=== PATIENT | male | born 1945 | race Caucasian/White ===

== ENCOUNTER 2017-05-17 19:32 | Inpatient (IN) | payer BC ==
[~2017-05-17] VITALS: Ht 177.8 cm; Wt 80.7 kg
--- NOTE | 2017-05-17 19:47 | PHYS DOC ---
Adult General Chief Complaint Chief Complaint: BRADYCARDIA HPI HPI Patient is a 72 year old male who presents with bradycardia. He states he was at dinner tonight when he felt a pain in his left lower abdominal wall and then felt nauseated and became diaphoretic and very weak. He denies any chest pain, shortness of breath, nausea or vomiting. He does have a past medical of prostate issues. He states he does have a cardiology appointment next week and was never had a stress test. Review of Systems Review of Systems Constitutional: Denies fever or chills [] Eyes: Denies change in visual acuity, redness, or eye pain [] HENT: Denies nasal congestion or sore throat [] Respiratory: Denies cough or shortness of breath [] Cardiovascular: No additional information not addressed in HPI [] GI: Denies abdominal pain, nausea, vomiting, bloody stools or diarrhea [] : Denies dysuria or hematuria [] Musculoskeletal: Denies back pain or joint pain [] Integument: Denies rash or skin lesions [] Neurologic: Denies headache, focal weakness or sensory changes [] Endocrine: Denies polyuria or polydipsia [] Allergies Allergies Allergies Coded Allergies Type Severity Reaction Last Updated Verified No Known Drug Allergies 05/17/17 No Physical Exam Physical Exam Constitutional: Well developed, well nourished, no acute distress, non-toxic appearance. [] HENT: Normocephalic, atraumatic, bilateral external ears normal, oropharynx moist, no oral exudates, nose normal. [] Eyes: PERRLA, EOMI, conjunctiva normal, no discharge. [] Neck: Normal range of motion, no tenderness, supple, no stridor. [] Cardiovascular:Heart rate regular rhythm, no murmur [] Lungs & Thorax: Bilateral breath sounds clear to auscultation [] Abdomen: Bowel sounds normal, soft, no tenderness, no masses, no pulsatile masses. [] Skin: Warm, dry, no erythema, no rash. [] Back: No tenderness, no CVA tenderness. [] Extremities: No tenderness, no cyanosis, no clubbing, ROM intact, no edema. [] Neurologic: Alert and oriented X 3, normal motor function, normal sensory function, no focal deficits noted. [] Psychologic: Affect normal, judgement normal, mood normal. [] Current Patient Data Vital Signs Vital Signs Date Time Temp Pulse Resp B/P (MAP) Pulse Ox O2 Delivery O2 Flow Rate FiO2 05/17/17 19:49 98.4 62 24 164/75 (104) 97 Room Air 98.4 Lab Values Laboratory Tests Test 05/17/17 19:40 White Blood Count 11.2 x10^3/uL (4.0-11.0) H Red Blood Count 4.41 x10^6/uL (4.30-5.70) Hemoglobin 14.2 g/dL (13.0-17.5) Hematocrit 41.4 % (39.0-53.0) Mean Corpuscular Volume 94 fL (79-100) Mean Corpuscular Hemoglobin 32 pg (25-35) Mean Corpuscular Hemoglobin Concent 34 g/dL (31-37) Red Cell Distribution Width 16.4 % (11.5-14.5) H Platelet Count 224 x10^3/uL (140-400) Neutrophils (%) (Auto) 49 % (31-73) Lymphocytes (%) (Auto) 40 % (24-48) Monocytes (%) (Auto) 9 % (0-9) Eosinophils (%) (Auto) 1 % (0-3) Basophils (%) (Auto) 1 % (0-3) Neutrophils # (Auto) 5.5 x10^3uL (1.8-7.7) Lymphocytes # (Auto) 4.5 x10^3/uL (1.0-4.8) Monocytes # (Auto) 1.0 x10^3/uL (0.0-1.1) Eosinophils # (Auto) 0.1 x10^3/uL (0.0-0.7) Basophils # (Auto) 0.1 x10^3/uL (0.0-0.2) Prothrombin Time 12.7 SEC (11.7-14.0) Prothrombin Time INR 1.0 (0.8-1.1) Sodium Level 140 mmol/L (136-145) Potassium Level 4.1 mmol/L (3.5-5.1) Chloride Level 104 mmol/L (98-107) Carbon Dioxide Level 27 mmol/L (21-32) Anion Gap 9 (6-14) Blood Urea Nitrogen 12 mg/dL (8-26) Creatinine 1.1 mg/dL (0.7-1.3) Estimated GFR (Cockcroft-Gault) 66.2 Glucose Level 98 mg/dL (70-99) Calcium Level 9.1 mg/dL (8.5-10.1) Magnesium Level 2.2 mg/dL (1.8-2.4) Total Bilirubin 1.0 mg/dL (0.2-1.0) Direct Bilirubin 0.1 mg/dL (0.0-0.2) Aspartate Amino Transferase (AST) 17 U/L (15-37) Alanine Aminotransferase (ALT) 22 U/L (16-63) Alkaline Phosphatase 61 U/L (46-116) Creatine Kinase 142 U/L (39-308) Creatine Kinase MB (Mass) 1.3 ng/mL (0.0-3.6) Creatine Kinase MB Relative Index 0.9 % (0-4) Troponin I Quantitative < 0.017 ng/mL (0.000-0.055) MZ-Udf-G-Type Natriuretic Peptide 35 pg/mL (0-124) Total Protein 7.0 g/dL (6.4-8.2) Albumin 3.9 g/dL (3.4-5.0) Lipase 119 U/L (73-393) Thyroid Stimulating Hormone (TSH) 3.129 uIU/mL (0.358-3.74) Laboratory Tests 05/17/17 19:40 Laboratory Tests 05/17/17 19:40 EKG EKG EKG shows sinus rhythm with rate of 57 bpm with a nonspecific ventricular block , no ST elevations appreciated, no T-wave inversions appreciated, QTC 433 ms, as interpreted by me. Radiology/Procedures Radiology/Procedures One view chest x-ray did not show any focal consolidations, bony abnormality, or pneumothorax, as interpreted by me. Impressions: Bradycardia Tobacco abuse Course & Med Decision Making Course & Med Decision Making Pertinent Labs and Imaging studies reviewed. (See chart for details) Patient is being admitted to Dr. Schultz secondary to his bradycardia. Cardiology consultation and interim orders have been written. Patient's in stable and agreeable condition at this time. Spoke with Dr. Schultz and Dr. Velez during the patient's symptoms, labs, EKG findings. Dragon Disclaimer Dragon Disclaimer This electronic medical record was generated, in whole or in part, using a voice recognition dictation system. Departure Departure Impression: Primary Impression: Bradycardia Disposition: ADMITTED INPATIENT Admitting Physician: Sedrick Schultz Condition: STABLE WINTER HERNANDEZ MD May 17, 2017 19:47
[2017-05-17 19:57] LABS: BASO # 0.1 x10^3/uL (0.0-0.2); BASO % 1 % (0-3); EOS % 1 % (0-3); HEMATOCRIT 41.4 % (39.0-53.0); HEMOGLOBIN 14.2 g/dL (13.0-17.5); LYMPH # 4.5 x10^3/uL (1.0-4.8); LYMPH % 40 % (24-48); MEAN CORPUSCULAR HEMOGLOBIN 32 pg (25-35); MEAN CORPUSCULAR HGB CONC 34 g/dL (31-37); MEAN CORPUSCULAR VOLUME 94 fL (79-100); MONO % 9 % (0-9); NEUT % 49 % (31-73); PLATELET COUNT 224 x10^3/uL (140-400); RED BLOOD COUNT 4.41 x10^6/uL (4.30-5.70); RED CELL DISTRIBUTION WIDTH 16.4 % (11.5-14.5); WHITE BLOOD COUNT 11.2 x10^3/uL (4.0-11.0)
[2017-05-17 20:06] LABS: PROTHROMBIN TIME PATIENT 12.7 SEC (11.7-14.0)
[2017-05-17 20:09] LABS: CALCIUM 9.1 mg/dL (8.5-10.1); CREATININE 1.1 mg/dL (0.7-1.3); GFR 66.2; POTASSIUM 4.1 mmol/L (3.5-5.1)
[2017-05-17 20:15] LABS: ALBUMIN 3.9 g/dL (3.4-5.0); DIRECT BILIRUBIN 0.1 mg/dL (0.0-0.2); MAGNESIUM 2.2 mg/dL (1.8-2.4)
[2017-05-17 20:25] LABS: CKMB MASS 1.3 ng/mL (0.0-3.6)
[2017-05-17] MEDS ORDERED: ONDANSETRON PF 4 MG/2 ML VIAL. IV PRN (20:45)
[2017-05-17] MEDS ORDERED: ASPIRIN 325 MG TABLET PO ONE (21:00)
[2017-05-17 21:21] LABS: BILIRUBIN,URINE NEGATIVE (NEG); GLUCOSE,URINE NEGATIVE (NEG); NITRITE,URINE NEGATIVE (NEG); PROTEIN,URINE NEGATIVE (NEG-TRACE); UROBILINOGEN,URINE 0.2 mg/dL (0.2 mg/dL)
[2017-05-17 21:26] LABS: BACTERIA,URINE 0 /HPF (0-FEW); RBC,URINE OCC /HPF (0-2)
[2017-05-17 21:27] LABS: SQUAMOUS EPITHELIAL CELL,UR OCC /LPF
[2017-05-17 22:18] VITALS: BP 148/82
--- NOTE | 2017-05-17 23:06 | PDOC1 ---
History and Physical Date of Admission Date of Admission DATE: 05/17/17 TIME: 23:04 History of Present Illness History of Present Illness Patient is a 72 year old male who presents with bradycardia. He states he was at dinner tonight when he felt a pain in his left lower abdominal wall and then felt nauseated and became diaphoretic and very weak. He denies any chest pain, shortness of breath, nausea or vomiting. He does have a past medical of prostate issues. He states he does have a cardiology appointment next week and was never had a stress test. Pt seen and examined [facility] Hetal nd and daughter, Bi. Plan is admit Will likely get a PPM also may need additional cardiac w/u. 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 Dictation still not working Total time 41 minutes. Current Problem List Problem List Problems Medical Problems: (1) Bradycardia Status: Acute Problems: Current Medications Current Medications Current Medications Ondansetron HCl (Zofran) 4 mg PRN Q8HRS PRN IV NAUSEA/VOMITING; Start 05/17/17 at 20:45; Stop 05/18/17 at 20:44 Aspirin (Lorne Aspirin) 325 mg 1X ONCE PO Last administered on 05/17/17t 20:51 ; Start 05/17/17 at 21:00; Stop 05/17/17 at 21:01; Status DC Allergies Allergies: Coded Allergies: No Known Drug Allergies (Unverified , 05/17/17) Vitals Vitals Vital Signs Date Time Temp Pulse Resp B/P (MAP) Pulse Ox O2 Delivery O2 Flow Rate FiO2 05/17/17 22:18 98.0 66 17 148/82 (104) 98 Room Air 98.0 Labs Labs Laboratory Tests Test 05/17/17 19:40 05/17/17 21:10 White Blood Count 11.2 x10^3/uL (4.0-11.0) Red Blood Count 4.41 x10^6/uL (4.30-5.70) Hemoglobin 14.2 g/dL (13.0-17.5) Hematocrit 41.4 % (39.0-53.0) Mean Corpuscular Volume 94 fL (79-100) Mean Corpuscular Hemoglobin 32 pg (25-35) Mean Corpuscular Hemoglobin Concent 34 g/dL (31-37) Red Cell Distribution Width 16.4 % (11.5-14.5) Platelet Count 224 x10^3/uL (140-400) Neutrophils (%) (Auto) 49 % (31-73) Lymphocytes (%) (Auto) 40 % (24-48) Monocytes (%) (Auto) 9 % (0-9) Eosinophils (%) (Auto) 1 % (0-3) Basophils (%) (Auto) 1 % (0-3) Neutrophils # (Auto) 5.5 x10^3uL (1.8-7.7) Lymphocytes # (Auto) 4.5 x10^3/uL (1.0-4.8) Monocytes # (Auto) 1.0 x10^3/uL (0.0-1.1) Eosinophils # (Auto) 0.1 x10^3/uL (0.0-0.7) Basophils # (Auto) 0.1 x10^3/uL (0.0-0.2) Prothrombin Time 12.7 SEC (11.7-14.0) Prothromb Time International Ratio 1.0 (0.8-1.1) Sodium Level 140 mmol/L (136-145) Potassium Level 4.1 mmol/L (3.5-5.1) Chloride Level 104 mmol/L (98-107) Carbon Dioxide Level 27 mmol/L (21-32) Anion Gap 9 (6-14) Blood Urea Nitrogen 12 mg/dL (8-26) Creatinine 1.1 mg/dL (0.7-1.3) Estimated GFR (Cockcroft-Gault) 66.2 Glucose Level 98 mg/dL (70-99) Calcium Level 9.1 mg/dL (8.5-10.1) Magnesium Level 2.2 mg/dL (1.8-2.4) Total Bilirubin 1.0 mg/dL (0.2-1.0) Direct Bilirubin 0.1 mg/dL (0.0-0.2) Aspartate Amino Transf (AST/SGOT) 17 U/L (15-37) Alanine Aminotransferase (ALT/SGPT) 22 U/L (16-63) Alkaline Phosphatase 61 U/L (46-116) Creatine Kinase 142 U/L (39-308) Creatine Kinase MB (Mass) 1.3 ng/mL (0.0-3.6) Creatine Kinase MB Relative Index 0.9 % (0-4) Troponin I Quantitative < 0.017 ng/mL (0.000-0.055) NZ-Omh-O-Type Natriuretic Peptide 35 pg/mL (0-124) Total Protein 7.0 g/dL (6.4-8.2) Albumin 3.9 g/dL (3.4-5.0) Lipase 119 U/L (73-393) Thyroid Stimulating Hormone (TSH) 3.129 uIU/mL (0.358-3.74) Urine Collection Type Unknown Urine Color Yellow Urine Clarity Clear Urine pH 6.0 Urine Specific [place] 1.015 Urine Protein Negative mg/dL (NEG-TRACE) Urine Glucose (UA) Negative mg/dL (NEG) Urine Ketones (Stick) Negative mg/dL (NEG) Urine Blood Negative (NEG) Urine Nitrite Negative (NEG) Urine Bilirubin Negative (NEG) Urine Urobilinogen Dipstick 0.2 mg/dL (0.2 mg/dL) Urine Leukocyte Esterase Negative (NEG) Urine RBC Occ /HPF (0-2) Urine WBC 1-4 /HPF (0-4) Urine Squamous Epithelial Cells Occ /LPF Urine Bacteria 0 /HPF (0-FEW) Urine Hyaline Casts Few /HPF Urine Mucus Mod /LPF Laboratory Tests Test 05/17/17 19:40 05/17/17 21:10 White Blood Count 11.2 x10^3/uL (4.0-11.0) Red Blood Count 4.41 x10^6/uL (4.30-5.70) Hemoglobin 14.2 g/dL (13.0-17.5) Hematocrit 41.4 % (39.0-53.0) Mean Corpuscular Volume 94 fL (79-100) Mean Corpuscular Hemoglobin 32 pg (25-35) Mean Corpuscular Hemoglobin Concent 34 g/dL (31-37) Red Cell Distribution Width 16.4 % (11.5-14.5) Platelet Count 224 x10^3/uL (140-400) Neutrophils (%) (Auto) 49 % (31-73) Lymphocytes (%) (Auto) 40 % (24-48) Monocytes (%) (Auto) 9 % (0-9) Eosinophils (%) (Auto) 1 % (0-3) Basophils (%) (Auto) 1 % (0-3) Neutrophils # (Auto) 5.5 x10^3uL (1.8-7.7) Lymphocytes # (Auto) 4.5 x10^3/uL (1.0-4.8) Monocytes # (Auto) 1.0 x10^3/uL (0.0-1.1) Eosinophils # (Auto) 0.1 x10^3/uL (0.0-0.7) Basophils # (Auto) 0.1 x10^3/uL (0.0-0.2) Prothrombin Time 12.7 SEC (11.7-14.0) Prothromb Time International Ratio 1.0 (0.8-1.1) Sodium Level 140 mmol/L (136-145) Potassium Level 4.1 mmol/L (3.5-5.1) Chloride Level 104 mmol/L (98-107) Carbon Dioxide Level 27 mmol/L (21-32) Anion Gap 9 (6-14) Blood Urea Nitrogen 12 mg/dL (8-26) Creatinine 1.1 mg/dL (0.7-1.3) Estimated GFR (Cockcroft-Gault) 66.2 Glucose Level 98 mg/dL (70-99) Calcium Level 9.1 mg/dL (8.5-10.1) Magnesium Level 2.2 mg/dL (1.8-2.4) Total Bilirubin 1.0 mg/dL (0.2-1.0) Direct Bilirubin 0.1 mg/dL (0.0-0.2) Aspartate Amino Transf (AST/SGOT) 17 U/L (15-37) Alanine Aminotransferase (ALT/SGPT) 22 U/L (16-63) Alkaline Phosphatase 61 U/L (46-116) Creatine Kinase 142 U/L (39-308) Creatine Kinase MB (Mass) 1.3 ng/mL (0.0-3.6) Creatine Kinase MB Relative Index 0.9 % (0-4) Troponin I Quantitative < 0.017 ng/mL (0.000-0.055) NI-Ydi-N-Type Natriuretic Peptide 35 pg/mL (0-124) Total Protein 7.0 g/dL (6.4-8.2) Albumin 3.9 g/dL (3.4-5.0) Lipase 119 U/L (73-393) Thyroid Stimulating Hormone (TSH) 3.129 uIU/mL (0.358-3.74) Urine Collection Type Unknown Urine Color Yellow Urine Clarity Clear Urine pH 6.0 Urine Specific [place] 1.015 Urine Protein Negative mg/dL (NEG-TRACE) Urine Glucose (UA) Negative mg/dL (NEG) Urine Ketones (Stick) Negative mg/dL (NEG) Urine Blood Negative (NEG) Urine Nitrite Negative (NEG) Urine Bilirubin Negative (NEG) Urine Urobilinogen Dipstick 0.2 mg/dL (0.2 mg/dL) Urine Leukocyte Esterase Negative (NEG) Urine RBC Occ /HPF (0-2) Urine WBC 1-4 /HPF (0-4) Urine Squamous Epithelial Cells Occ /LPF Urine Bacteria 0 /HPF (0-FEW) Urine Hyaline Casts Few /HPF Urine Mucus Mod /LPF VTE Prophylaxis Ordered VTE Prophylaxis Devices: Yes VTE Pharmacological Prophylaxi: Yes SAFIA ALANIS III, DO May 17, 2017 23:06
[2017-05-17 23:29] VITALS: BP 116/56
[2017-05-18] MEDS ORDERED: CYAN500T40 SL (00:02)
[2017-05-18] MEDS ORDERED: FINA5TAB4 PO (00:02)
[2017-05-18] MEDS ORDERED: AMLO2.5T PO (00:02)
[2017-05-18] MEDS ORDERED: NICO1PAT25 TP (00:02)
[2017-05-18] MEDS ORDERED: TAMS0.4C2 PO (00:02)
[2017-05-18 02:55] VITALS: BP 104/48
[2017-05-18 03:57] LABS: BASO % 0 % (0-3); EOS % 1 % (0-3); HEMOGLOBIN 14.1 g/dL (13.0-17.5); LYMPH # 2.4 x10^3/uL (1.0-4.8); LYMPH % 27 % (24-48); MEAN CORPUSCULAR HEMOGLOBIN 32 pg (25-35); MEAN CORPUSCULAR HGB CONC 34 g/dL (31-37); MEAN CORPUSCULAR VOLUME 95 fL (79-100); MONO % 9 % (0-9); NEUT % 62 % (31-73); PLATELET COUNT 208 x10^3/uL (140-400); RED BLOOD COUNT 4.42 x10^6/uL (4.30-5.70); RED CELL DISTRIBUTION WIDTH 16.3 % (11.5-14.5)
[2017-05-18 05:33] LABS: CALCIUM 8.2 mg/dL (8.5-10.1); CREATININE 1.1 mg/dL (0.7-1.3); GFR 66.2; POTASSIUM 4.2 mmol/L (3.5-5.1)
[2017-05-18 07:00] VITALS: BP 136/60
--- NOTE | 2017-05-18 07:38 | PDOC2 ---
CARDIOLOGY CONSULT NOTE CHEIF COMPLAINT: Abd pain Problems: HPI: 72 y.o male without significant pmhx presenting for abd pain and noted to have bradycardia. Patient was in his usual state of health, eating dinner and felt sudden pain in his abdomen. This led to EMS being called and while having this intensive pain, he then had some bradycardia possibly to the 20's per report from ER doc but upon arrival to the ER his HR had normalized. No recent symptoms to suggest arrhythmia such as LH, dizziness, orthopnea, PND or LE edema. No angina at home. No prior CV interventions. PMHX: BPH FAMHX: Non-contributory CURRENT MEDS: Current Medications Medications (Trade) Dose Ordered Sig/Shay Start Time Stop Time Status Last Admin Dose Admin Aspirin (Lorne Aspirin) 325 mg 1X ONCE 05/17/17 21:00 05/17/17 21:01 DC 05/17/17 20:51 325 MG Ondansetron HCl (Zofran) 4 mg PRN Q8HRS PRN 05/17/17 20:45 05/18/17 20:44 ALLERGIES: Allergies Coded Allergies Type Severity Reaction Last Updated Verified No Known Drug Allergies 05/17/17 No ROS: Negative for 08/23 systems reviewed unless otherwise noted above in HPI. PHYSICAL EXAM: Vital Signs: Vital Signs Date Time Temp Pulse Resp B/P (MAP) Pulse Ox O2 Delivery O2 Flow Rate FiO2 05/18/17 02:55 98.0 63 19 104/48 (66) 96 Room Air 98.0 I & O Intake and Output 05/18/17 07:00 Intake Total 440 ml Output Total 550 ml Balance -110 ml Intake Oral 440 ml Output Urine Total 550 ml Physical Exam: GEN.: No apparent distress. Alert and oriented. HEENT: Head is normocephalic, atraumatic NECK: Supple. LUNGS: Clear to auscultation. HEART: RRR, S1, S2 present. Peripheral pulses intact ABDOMEN: Soft, nontender. Positive bowel sounds. EXTREMITIES: Without any cyanosis. NEUROLOGIC: Normal speech, normal tone PSYCHIATRIC: Normal affect, normal mood. SKIN: No ulcerations DIAGNOSTIC TESTING: EKG - NSR with RBBB. CXR - normal EMS EKG - Regular rhythm, artifact noted with HR in the 40's. Lab CBC, CMP and CE normal ASSESSMENT: 1. Possible bradycardia in the setting of intense pain - possible vasovagal episode. PLAN: 1. No alarm signs at this time. Reviewed EMS EKG, HR is in the 40's, not in the 20's. Given that he has not had any pain, enzymes are negative and there is no indication for pacemaker. Recommend follow up with computer support technician on Friday - Will have computer support technician perform Stress and consider outpt event monitor. Thanks for consult. Ok to DC. LULU PAVON MD May 18, 2017 07:38
--- NOTE | 2017-05-18 08:57 | RAD ---
EXAM: CHEST 1 VIEW history: Bradycardia COMPARISON: None available. TECHNIQUE: Single portable radiograph of the chest FINDINGS: The cardiac silhouette is unremarkable. The lungs are clear bilaterally. The costophrenic sulci are clear and well demarcated. IMPRESSION: No radiographic evidence of an acute cardiopulmonary process.
--- NOTE | 2017-05-18 12:18 | EKG ---
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
--- NOTE | 2017-05-18 12:50 | PDOC3 ---
Discharge Summary Visit Information Date of Discharge: May 18, 2017 Final Diagnosis Problems Medical Problems: (1) Bradycardia Status: Acute Brief Hospital Course Allergies Allergies Coded Allergies Type Severity Reaction Last Updated Verified No Known Drug Allergies 05/17/17 No Vital Signs Vital Signs Date Time Temp Pulse Resp B/P (MAP) Pulse Ox O2 Delivery O2 Flow Rate FiO2 05/18/17 07:00 98.0 57 18 136/60 (85) 97 Room Air 98.0 Lab Results Laboratory Tests Test 05/17/17 19:40 05/17/17 21:10 05/18/17 02:00 05/18/17 02:50 White Blood Count 11.2 x10^3/uL (4.0-11.0) 9.0 x10^3/uL (4.0-11.0) Red Blood Count 4.41 x10^6/uL (4.30-5.70) 4.42 x10^6/uL (4.30-5.70) Hemoglobin 14.2 g/dL (13.0-17.5) 14.1 g/dL (13.0-17.5) Hematocrit 41.4 % (39.0-53.0) 42.0 % (39.0-53.0) Mean Corpuscular Volume 94 fL (79-100) 95 fL (79-100) Mean Corpuscular Hemoglobin 32 pg (25-35) 32 pg (25-35) Mean Corpuscular Hemoglobin Concent 34 g/dL (31-37) 34 g/dL (31-37) Red Cell Distribution Width 16.4 % (11.5-14.5) 16.3 % (11.5-14.5) Platelet Count 224 x10^3/uL (140-400) 208 x10^3/uL (140-400) Neutrophils (%) (Auto) 49 % (31-73) 62 % (31-73) Lymphocytes (%) (Auto) 40 % (24-48) 27 % (24-48) Monocytes (%) (Auto) 9 % (0-9) 9 % (0-9) Eosinophils (%) (Auto) 1 % (0-3) 1 % (0-3) Basophils (%) (Auto) 1 % (0-3) 0 % (0-3) Neutrophils # (Auto) 5.5 x10^3uL (1.8-7.7) 5.6 x10^3uL (1.8-7.7) Lymphocytes # (Auto) 4.5 x10^3/uL (1.0-4.8) 2.4 x10^3/uL (1.0-4.8) Monocytes # (Auto) 1.0 x10^3/uL (0.0-1.1) 0.8 x10^3/uL (0.0-1.1) Eosinophils # (Auto) 0.1 x10^3/uL (0.0-0.7) 0.1 x10^3/uL (0.0-0.7) Basophils # (Auto) 0.1 x10^3/uL (0.0-0.2) 0.0 x10^3/uL (0.0-0.2) Prothrombin Time 12.7 SEC (11.7-14.0) Prothromb Time International Ratio 1.0 (0.8-1.1) Sodium Level 140 mmol/L (136-145) 144 mmol/L (136-145) Potassium Level 4.1 mmol/L (3.5-5.1) 4.2 mmol/L (3.5-5.1) Chloride Level 104 mmol/L (98-107) 107 mmol/L (98-107) Carbon Dioxide Level 27 mmol/L (21-32) 28 mmol/L (21-32) Anion Gap 9 (6-14) 9 (6-14) Blood Urea Nitrogen 12 mg/dL (8-26) 16 mg/dL (8-26) Creatinine 1.1 mg/dL (0.7-1.3) 1.1 mg/dL (0.7-1.3) Estimated GFR (Cockcroft-Gault) 66.2 66.2 Glucose Level 98 mg/dL (70-99) 106 mg/dL (70-99) Calcium Level 9.1 mg/dL (8.5-10.1) 8.2 mg/dL (8.5-10.1) Magnesium Level 2.2 mg/dL (1.8-2.4) Total Bilirubin 1.0 mg/dL (0.2-1.0) Direct Bilirubin 0.1 mg/dL (0.0-0.2) Aspartate Amino Transf (AST/SGOT) 17 U/L (15-37) Alanine Aminotransferase (ALT/SGPT) 22 U/L (16-63) Alkaline Phosphatase 61 U/L (46-116) Creatine Kinase 142 U/L (39-308) Creatine Kinase MB (Mass) 1.3 ng/mL (0.0-3.6) Creatine Kinase MB Relative Index 0.9 % (0-4) Troponin I Quantitative < 0.017 ng/mL (0.000-0.055) < 0.017 ng/mL (0.000-0.055) IN-Rdi-V-Type Natriuretic Peptide 35 pg/mL (0-124) Total Protein 7.0 g/dL (6.4-8.2) Albumin 3.9 g/dL (3.4-5.0) Lipase 119 U/L (73-393) Thyroid Stimulating Hormone (TSH) 3.129 uIU/mL (0.358-3.74) Urine Collection Type Unknown Urine Color Yellow Urine Clarity Clear Urine pH 6.0 Urine Specific [place] 1.015 Urine Protein Negative mg/dL (NEG-TRACE) Urine Glucose (UA) Negative mg/dL (NEG) Urine Ketones (Stick) Negative mg/dL (NEG) Urine Blood Negative (NEG) Urine Nitrite Negative (NEG) Urine Bilirubin Negative (NEG) Urine Urobilinogen Dipstick 0.2 mg/dL (0.2 mg/dL) Urine Leukocyte Esterase Negative (NEG) Urine RBC Occ /HPF (0-2) Urine WBC 1-4 /HPF (0-4) Urine Squamous Epithelial Cells Occ /LPF Urine Bacteria 0 /HPF (0-FEW) Urine Hyaline Casts Few /HPF Urine Mucus Mod /LPF Test 05/18/17 08:50 Troponin I Quantitative < 0.017 ng/mL (0.000-0.055) Laboratory Tests Test 05/17/17 19:40 05/17/17 21:10 05/18/17 02:00 05/18/17 02:50 White Blood Count 11.2 x10^3/uL (4.0-11.0) 9.0 x10^3/uL (4.0-11.0) Red Blood Count 4.41 x10^6/uL (4.30-5.70) 4.42 x10^6/uL (4.30-5.70) Hemoglobin 14.2 g/dL (13.0-17.5) 14.1 g/dL (13.0-17.5) Hematocrit 41.4 % (39.0-53.0) 42.0 % (39.0-53.0) Mean Corpuscular Volume 94 fL (79-100) 95 fL (79-100) Mean Corpuscular Hemoglobin 32 pg (25-35) 32 pg (25-35) Mean Corpuscular Hemoglobin Concent 34 g/dL (31-37) 34 g/dL (31-37) Red Cell Distribution Width 16.4 % (11.5-14.5) 16.3 % (11.5-14.5) Platelet Count 224 x10^3/uL (140-400) 208 x10^3/uL (140-400) Neutrophils (%) (Auto) 49 % (31-73) 62 % (31-73) Lymphocytes (%) (Auto) 40 % (24-48) 27 % (24-48) Monocytes (%) (Auto) 9 % (0-9) 9 % (0-9) Eosinophils (%) (Auto) 1 % (0-3) 1 % (0-3) Basophils (%) (Auto) 1 % (0-3) 0 % (0-3) Neutrophils # (Auto) 5.5 x10^3uL (1.8-7.7) 5.6 x10^3uL (1.8-7.7) Lymphocytes # (Auto) 4.5 x10^3/uL (1.0-4.8) 2.4 x10^3/uL (1.0-4.8) Monocytes # (Auto) 1.0 x10^3/uL (0.0-1.1) 0.8 x10^3/uL (0.0-1.1) Eosinophils # (Auto) 0.1 x10^3/uL (0.0-0.7) 0.1 x10^3/uL (0.0-0.7) Basophils # (Auto) 0.1 x10^3/uL (0.0-0.2) 0.0 x10^3/uL (0.0-0.2) Prothrombin Time 12.7 SEC (11.7-14.0) Prothromb Time International Ratio 1.0 (0.8-1.1) Sodium Level 140 mmol/L (136-145) 144 mmol/L (136-145) Potassium Level 4.1 mmol/L (3.5-5.1) 4.2 mmol/L (3.5-5.1) Chloride Level 104 mmol/L (98-107) 107 mmol/L (98-107) Carbon Dioxide Level 27 mmol/L (21-32) 28 mmol/L (21-32) Anion Gap 9 (6-14) 9 (6-14) Blood Urea Nitrogen 12 mg/dL (8-26) 16 mg/dL (8-26) Creatinine 1.1 mg/dL (0.7-1.3) 1.1 mg/dL (0.7-1.3) Estimated GFR (Cockcroft-Gault) 66.2 66.2 Glucose Level 98 mg/dL (70-99) 106 mg/dL (70-99) Calcium Level 9.1 mg/dL (8.5-10.1) 8.2 mg/dL (8.5-10.1) Magnesium Level 2.2 mg/dL (1.8-2.4) Total Bilirubin 1.0 mg/dL (0.2-1.0) Direct Bilirubin 0.1 mg/dL (0.0-0.2) Aspartate Amino Transf (AST/SGOT) 17 U/L (15-37) Alanine Aminotransferase (ALT/SGPT) 22 U/L (16-63) Alkaline Phosphatase 61 U/L (46-116) Creatine Kinase 142 U/L (39-308) Creatine Kinase MB (Mass) 1.3 ng/mL (0.0-3.6) Creatine Kinase MB Relative Index 0.9 % (0-4) Troponin I Quantitative < 0.017 ng/mL (0.000-0.055) < 0.017 ng/mL (0.000-0.055) JS-Mta-I-Type Natriuretic Peptide 35 pg/mL (0-124) Total Protein 7.0 g/dL (6.4-8.2) Albumin 3.9 g/dL (3.4-5.0) Lipase 119 U/L (73-393) Thyroid Stimulating Hormone (TSH) 3.129 uIU/mL (0.358-3.74) Urine Collection Type Unknown Urine Color Yellow Urine Clarity Clear Urine pH 6.0 Urine Specific [place] 1.015 Urine Protein Negative mg/dL (NEG-TRACE) Urine Glucose (UA) Negative mg/dL (NEG) Urine Ketones (Stick) Negative mg/dL (NEG) Urine Blood Negative (NEG) Urine Nitrite Negative (NEG) Urine Bilirubin Negative (NEG) Urine Urobilinogen Dipstick 0.2 mg/dL (0.2 mg/dL) Urine Leukocyte Esterase Negative (NEG) Urine RBC Occ /HPF (0-2) Urine WBC 1-4 /HPF (0-4) Urine Squamous Epithelial Cells Occ /LPF Urine Bacteria 0 /HPF (0-FEW) Urine Hyaline Casts Few /HPF Urine Mucus Mod /LPF Test 05/18/17 08:50 Troponin I Quantitative < 0.017 ng/mL (0.000-0.055) Brief Hospital Course Mr. Christensen is a 72 old [sex] who presented with [syncope and bradycardia Consulted cards Plan is dc with close out pt fu Pt seen and examined Dictation still broken Total time 32 minutes ] Discharge Information Scheduled Amlodipine Besylate (Amlodipine Besylate), 2.5 MG PO DAILY, (Reported) Finasteride (Finasteride), 1 TAB PO DAILY, (Reported) Nicotine (NICODERM CQ 14mg), 1 PATCH TP DAILY, (Reported) Tamsulosin Hcl (Tamsulosin Hcl), 1 CAP PO DAILY, (Reported) Miscellaneous Medications Cyanocobalamin (Vitamin B-12) (Vitamin B-12), 500 MCG SL, (Reported) SAFIA ALANIS III DO May 18, 2017 12:50
== END 2017-05-18 12:10 | disposition home or self-care (01) | DRG 310 ==
LOC: ER 19:32 → 2 NORTH 20:00
PROVIDERS: ADMIT Internal Medicine; ATTEND Internal Medicine
DX: R00.1 Bradycardia, unspecified (principal); R55 Syncope and collapse; N40.0 Benign prostatic hyperplasia without lower urinary tract symptoms; F17.200 Nicotine dependence, unspecified, uncomplicated
CPT/HCPCS: 36415; 71010; 80048; 80076; 81001; 82553; 83690; 83735; 83880; 84443; 84484; 85027; 85610; 93005